=== PATIENT | male | born 1980 | race Two or more races ===

== ENCOUNTER 2020-03-27 06:49 | Emergency (ER) | payer OTHER ==
[~2020-03-27] VITALS: Ht 182.9 cm; Wt 97.5 kg
[2020-03-27 06:53] VITALS: Ht 182.9 cm; Wt 97.5 kg
== END 2020-03-27 09:39 | disposition expired ==
LOC: ED 06:49
DX: I46.9 Cardiac arrest, cause unspecified (principal)